=== PATIENT | male | born 1950 | race Caucasian/White ===

== ENCOUNTER 2023-04-22 05:36 | Observation (INO) | payer BC ==
[2023-04-21 15:26] VITALS: BMI 26.3
[2023-04-22] MEDS ORDERED: Thrombin 5000 UNITS/5 ML VIAL ONE (06:11)
[2023-04-22] MEDS ORDERED: Vancomycin 1 GM VIAL ONE (06:11)
[2023-04-22] MEDS ORDERED: Bupivacaine HCl 0.5%/Epinephrine 1:200,000/PF 30 ml Vial ONE (06:11)
[2023-04-22] MEDS ORDERED: Fentanyl 250 MCG/5 ML VIAL ONE (06:16)
[2023-04-22] MEDS ORDERED: Albumin 5% 500 ML ONE (06:16)
[2023-04-22] MEDS ORDERED: Famotidine/PF 20 mg/2ml Vial ONE (06:38)
[2023-04-22] MEDS ORDERED: CEFAZOLIN 2 GM VIAL ONE (06:46)
[2023-04-22] MEDS ORDERED: Sodium Chloride 0.9% 100 ML ONE (06:46)
[2023-04-22] MEDS ORDERED: Ondansetron PF 4 MG/2 ML Vial IVP PRN (07:03)
[2023-04-22] MEDS ORDERED: Acetaminophen/Codeine 30-300mg Tablet PO PRN (07:03)
[2023-04-22] MEDS ORDERED: Acetaminophen 325 MG TAB PO PRN (07:03)
[2023-04-22] MEDS ORDERED: HYDROcodone/Acetaminophen 7.5/325 mg Tablet PO PRN (07:03)
[2023-04-22] MEDS ORDERED: Mag-Al 1200 mg/1200 mg/30 ML UDCUP PO PRN (07:03)
[2023-04-22] MEDS ORDERED: diphenhydrAMINE 50 MG/ML VIAL IVP PRN (07:03)
[2023-04-22] MEDS ORDERED: Morphine 2 MG/ML VIAL SLOW IVP PRN (07:03)
[2023-04-22] MEDS ORDERED: Prochlorperazine 10 MG/2 ML VIAL IM PRN (07:03)
[2023-04-22] MEDS ORDERED: Milk Of Magnesia 30 ML UDCUP PO PRN (07:03)
[2023-04-22] MEDS ORDERED: HYDROcodone/Acetaminophen 10/325 mg Tablet PO PRN (07:03)
[2023-04-22] MEDS ORDERED: tiZANidine HCl 4 MG TAB PO PRN (07:06)
[2023-04-22] MEDS ORDERED: Glycopyrrolate 0.2 MG/ML 5 ML SYRINGE ONE (07:08)
[2023-04-22] MEDS ORDERED: Lidocaine 1% PF 5 ML VIAL ONE (07:08)
[2023-04-22] MEDS ORDERED: Rocuronium Bromide 10 MG/ML (10ML VIAL) ONE (07:08)
[2023-04-22] MEDS ORDERED: PHENYLEPHRINE-NS 100 MCG/ML 10 ML SYRINGE ONE (07:08)
[2023-04-22] MEDS ORDERED: Vecuronium 10 MG VIAL ONE (07:08)
[2023-04-22] MEDS ORDERED: PROPOFOL 200 MG/20 ML VIAL ONE (07:08)
[2023-04-22] MEDS ORDERED: NEOSTIGMINE 3 MG/3 ML SYR 3 MG/3 ML SYRINGE ONE (07:08)
[2023-04-22] MEDS ORDERED: Dexamethasone 20 MG/5 ML VIAL ONE (07:08)
[2023-04-22] MEDS ORDERED: MINERAL OIL/WHITE PETROLATUM 3.5 GM TUBE ONE (07:12)
[2023-04-22] MEDS ORDERED: Phenylephrine 10 MG/ML VIAL ONE (12:11)
[2023-04-22] MEDS ORDERED: HYDROmorphone 2 MG/ML VIAL SLOW IVP PRN (13:10)
[2023-04-22] MEDS ORDERED: Morphine Sulfate 2 MG/ML SYRINGE SLOW IVP PRN (13:10)
[2023-04-22] MEDS ORDERED: Ondansetron HCl/PF 4 MG/2 ML Vial IVP PRN (13:10)
[2023-04-22] MEDS ORDERED: PACU-Morphine 4MG/ML VIAL SLOW IVP PRN (13:10)
[2023-04-22] MEDS ORDERED: Promethazine HCl 25 MG/ML VIAL IM PRN (13:10)
[2023-04-22] MEDS ORDERED: HYDROmorphone 2 MG/ML VIAL ONE (13:24)
[2023-04-22] MEDS: CEFAZOLIN 2 GM in Sodium Chloride 0.9% 100 ML IVPB SCH ×2 (14:55→22:12)
[2023-04-22] MEDS: Sodium Chloride 0.9% 1,000 ML IV SCH (14:55)
[2023-04-22 18:36] LABS: #Monocytes 1.1 thou/uL (0.11-0.59); #Neutrophils 14.6 thou/uL (1.40-6.50); %Basophils 0.1 % (0.0-1.0); %Lymphocytes 2.5 % (21.0-51.0); %Monocytes 6.6 % (0.0-10.0); %Neutrophils 90.1 % (42.0-75.0); Hemoglobin 11.1 g/dL (14.0-18.0); Mean Corpuscular HGB CONC 33.6 g/dL (32.0-36.0); Mean Corpuscular Hemoglobin 30.7 pg (27.0-31.0); Mean Corpuscular Volume 91.2 fl (78.0-98.0); Platelet Count 140 10x3/uL (130-400); RBC Distribution Width 12.7 % (11.5-14.5); Red Blood Cell (RBC) Count 3.62 mill/uL (4.70-6.10); White Blood Cell (WBC) Count 16.2 10x3/uL (4.8-10.8)
[2023-04-22 19:00] LABS: ALT (SGPT) 42 U/L (8-55); AST (SGOT) 82 U/L (5-34); Albumin 3.7 g/dL (3.4-4.8); Alkaline Phosphatase 74 U/L (40-110); Anion Gap 11 mmol/L (10-20); BUN (Urea Nitrogen) 9 mg/dL (8.4-25.7); Bilirubin, Total 0.9 mg/dL (0.2-1.2); Calc. Creatinine Clearance 67 mL/min (70-130); Calcium 8.2 mg/dL (7.8-10.44); Carbon Dioxide 22 mmol/L (23-31); Chloride 103 mmol/L (98-107); Estimated GFR 76; Globulin 1.8 g/dL (2.4-3.5); Glucose 188 mg/dL (83-110); Magnesium 1.6 mg/dL (1.6-2.6); Potassium 4.4 mmol/L (3.5-5.1); Protein, Total 5.5 g/dL (5.8-8.1); Sodium 132 mmol/L (136-145)
[2023-04-22] MEDS ORDERED: Atorvastatin Calcium 20 MG TAB PO SCH (21:00)
[2023-04-23] MEDS: Sodium Chloride 0.9% 1,000 ML IV SCH ×2 (03:33→10:00)
[2023-04-23] MEDS ORDERED: Tamsulosin HCl 0.4 MG CAP PO SCH (06:00)
[2023-04-23] MEDS: Ascorbic Acid 500 mg Chewable Tablet PO SCH (08:34)
[2023-04-23] MEDS ORDERED: Losartan 25 MG TAB PO SCH (09:00)
[2023-04-23] MEDS ORDERED: Cholecalciferol 1,000 UNITS (25 MCG) TAB PO SCH (09:00)
[2023-04-23] MEDS ORDERED: Non-Formulary Item 1 EACH (Zinc Gluconate [Zinc] 50 MG Tablet) PO SCH (09:00)
[2023-04-23 09:25] LABS: Anion Gap 10 mmol/L (10-20); BUN (Urea Nitrogen) 11 mg/dL (8.4-25.7); Calc. Creatinine Clearance 74 mL/min (70-130); Carbon Dioxide 23 mmol/L (23-31); Chloride 105 mmol/L (98-107); Estimated GFR 86; Glucose 118 mg/dL (83-110); Sodium 134 mmol/L (136-145)
[2023-04-23 11:46] VITALS: BP 181/73; TEMP 98
== END 2023-04-23 13:36 | disposition home or self-care (01) ==
LOC: SDC 05:36 → SURG A 14:57
PROVIDERS: ADMIT Neurological Surgery; ATTEND Neurological Surgery
PROC: 0SG3071 Fusion of Lumbosacral Joint with Autologous Tissue Substitute, Posterior Approach, Posterior Column, Open Approach (ICD-10-PCS; principal; 2023-04-23)
PROC: 0SB20ZZ Excision of Lumbar Vertebral Disc, Open Approach (ICD-10-PCS; 2023-04-23)
PROC: 00NY0ZZ Release Lumbar Spinal Cord, Open Approach (ICD-10-PCS; 2023-04-23)
DX: M48.062 Spinal stenosis, lumbar region with neurogenic claudication (principal); M51.26 Other intervertebral disc displacement, lumbar region; I10 Essential (primary) hypertension; E78.00 Pure hypercholesterolemia, unspecified; I25.10 Atherosclerotic heart disease of native coronary artery without angina pectoris; D72.829 Elevated white blood cell count, unspecified; N40.0 Benign prostatic hyperplasia without lower urinary tract symptoms; Z87.891 Personal history of nicotine dependence; Z86.711 Personal history of pulmonary embolism; Z90.49 Acquired absence of other specified parts of digestive tract; Z79.899 Other long term (current) drug therapy
CPT/HCPCS: 36415; 80048; 80053; 83735; 85025; C1713; C1889; G0378; J1100; J1170; J2370; J2704; J3010; J3370; J3490; J7050; P9045; S0028